=== PATIENT | male | born 1960 | race Caucasian/White ===

== ENCOUNTER 2022-05-07 14:02 | Outpatient (CLI) | payer BC | END 2022-05-07 14:03 | disposition home or self-care (01) | LOC: CSHMRI 14:02 | PROVIDERS: ATTEND Physical Medicine & Rehabilitation Sports Medicine | DX: S89.91XA Unspecified injury of right lower leg, initial encounter (principal); M25.561 Pain in right knee; M17.11 Unilateral primary osteoarthritis, right knee; S83.241A Other tear of medial meniscus, current injury, right knee, initial encounter ==